=== PATIENT | female | born 1945 | race Caucasian/White ===

== ENCOUNTER 2019-09-11 10:43 | Emergency (ER) | payer MEDICARE ==
[~2019-09-11] VITALS: Ht 157.5 cm; Wt 77.1 kg
[~2019-09-11 10:43] MED LIST: ACET325 PO; ALBIPROI; ASPI325 PO; ASPI81EC PO; ATEN25 PO; ATOR10; Aspir 8181 MG PO; CINNAMON PLUS1 EACH; DIAZ5 PO; DIPATR; Duoneb 2.5-0.5 M3 ML IH; FISH OIL 1,001000 MG PO; FISH1000 PO; HYDACE5 PO; LISHYD2012 PO; LORA1 PO; LOSA50 PO; LOVA20; METO25ER PO; METO50ER PO; MONT10T; Meribin5 MG PO; NEBI5; Neurontin 100100 MG PO; OXYC5 PO; PRAV20 PO; PRAVASTATIN SOD10 MG PO; TRIHYD253A; Ventolin/Prove6.7 GM INH
[2019-09-11] MEDS ORDERED: BENADRYL25 MG PO (11:23)
== END 2019-09-11 11:52 | disposition home or self-care (01) ==
LOC: ER 10:43
DX: R21 Rash and other nonspecific skin eruption (principal); Z88.2 Allergy status to sulfonamides; Z88.5 Allergy status to narcotic agent; Z91.018 Allergy to other foods; Z88.8 Allergy status to other drugs, medicaments and biological substances; Z79.899 Other long term (current) drug therapy; Z79.82 Long term (current) use of aspirin; J44.9 Chronic obstructive pulmonary disease, unspecified; I10 Essential (primary) hypertension; Z86.73 Personal history of transient ischemic attack (TIA), and cerebral infarction without residual deficits; F17.210 Nicotine dependence, cigarettes, uncomplicated
CPT/HCPCS: 99282; Q0163

== ENCOUNTER 2020-04-16 10:13 | Day surgery (SDC) | payer MEDICARE ==
[~2020-04-16 10:13] MED LIST changes: +BENADRYL25 MG PO
--- NOTE | 2020-04-16 13:55 | NUR ---
PT TO IMAAGING FOR CTA AORTA, BACK NOW, VSS STABLE, W PT NOW, DR ROBERTSON IN EARLIER TO EXPLAIN PLAN OF CARE TO PT/
--- NOTE | 2020-04-16 14:28 | NUR ---
PT DRESSED, IV'S X 2 DC'D INTACT, PT AMB TO BTR OK, GAVE PT WC RIDE DOWN TO CAR, DRIVING PT HOME, DC'D WITH PAPER INSTRUCTIONS GIVEN
== END 2020-04-16 23:44 | disposition home or self-care (01) ==
LOC: MHTC 10:13
DX: I63.9 Cerebral infarction, unspecified (principal); I25.2 Old myocardial infarction; I70.0 Atherosclerosis of aorta; I11.9 Hypertensive heart disease without heart failure; Z79.82 Long term (current) use of aspirin; Z79.899 Other long term (current) drug therapy; F17.210 Nicotine dependence, cigarettes, uncomplicated; Z88.5 Allergy status to narcotic agent; Z88.8 Allergy status to other drugs, medicaments and biological substances; Z91.018 Allergy to other foods
CPT/HCPCS: 71275; 74175; 93312; 93325; J2704; J7030; Q9967

== ENCOUNTER → 2022-10-22 | Outpatient (CLI) | payer MEDICARE ==
[~2022-10-22] MED LIST changes: +HYDR1TAB94 PO; +PLAVIX75 MG PO
[2022-10-22 09:56] LABS: BASOPHILS ABSOLUTE AUTO 0.03 K/mm3 (0.00-0.23); BASOPHILS PERCENT AUTO 1 % (0-2); EOSINOPHILS ABSOLUTE AUTO 0.11 K/mm3 (0.00-0.68); EOSINOPHILS PERCENT AUTO 2 % (0-6); Hematocrit 44.7 % (33.0-51.0); Hemoglobin 15.4 g/dL (11.5-16.0); IMMATURE GRAN ABSOLUTE AUTO 0.01 K/mm3 (0.00-0.10); IMMATURE GRAN PERCENT AUTO 0 % (0-1); LYMPHOCYTES ABSOLUTE AUTO 1.88 K/mm3 (0.84-5.20); LYMPHOCYTES PERCENT AUTO 33 % (21-46); MONOCYTES ABSOLUTE AUTO 0.46 K/mm3 (0.16-1.47); MONOCYTES PERCENT AUTO 8 % (4-13); Mean Corpuscular HGB 31.4 pg (26.0-34.0); Mean Corpuscular HGB Conc 34.5 g/dL (31.5-36.5); Mean Corpuscular Volume 91 fL (80-100); Mean Platelet Volume 9.9 fL (9.1-12.4); NEUTROPHILS PERCENT AUTO 57 % (41-73); Platelet Count 172 K/mm3 (150-400); RDW Coefficient Variation 13.2 % (11.7-14.2); White Blood Cell Count 5.79 K/mm3 (4.00-11.30)
[2022-10-22 10:02] LABS: Bun/Creatinine Ratio 14.6 (12.0-20.0); Calcium, Blood 10.4 mg/dL (8.5-10.1); Creatinine, Blood 0.89 mg/dL (0.40-1.00); Potassium, Blood 3.8 mmol/L (3.5-5.5)
== END | disposition home or self-care (01) ==
LOC: LAB 09:52 → LAB SHORT 09:52
PROVIDERS: Physician Assistant Surgical
DX: R06.02 Shortness of breath (principal)
CPT/HCPCS: 80048; 83880; 85025

== ENCOUNTER → 2022-10-26 | Outpatient (CLI) | payer MEDICARE ==
[2022-10-26 16:07] LABS: BASOPHILS ABSOLUTE AUTO 0.04 K/mm3 (0.00-0.23); BASOPHILS PERCENT AUTO 1 % (0-2); EOSINOPHILS ABSOLUTE AUTO 0.11 K/mm3 (0.00-0.68); EOSINOPHILS PERCENT AUTO 2 % (0-6); Hematocrit 45.3 % (33.0-51.0); Hemoglobin 15.6 g/dL (11.5-16.0); IMMATURE GRAN ABSOLUTE AUTO 0.01 K/mm3 (0.00-0.10); IMMATURE GRAN PERCENT AUTO 0 % (0-1); LYMPHOCYTES ABSOLUTE AUTO 2.11 K/mm3 (0.84-5.20); LYMPHOCYTES PERCENT AUTO 35 % (21-46); MONOCYTES ABSOLUTE AUTO 0.48 K/mm3 (0.16-1.47); MONOCYTES PERCENT AUTO 8 % (4-13); Mean Corpuscular HGB 31.2 pg (26.0-34.0); Mean Corpuscular HGB Conc 34.4 g/dL (31.5-36.5); Mean Corpuscular Volume 91 fL (80-100); Mean Platelet Volume 10.8 fL (9.1-12.4); NEUTROPHILS ABSOLUTE AUTO 3.31 K/mm3 (1.96-9.15); NEUTROPHILS PERCENT AUTO 55 % (41-73); Platelet Count 173 K/mm3 (150-400); RDW Coefficient Variation 13.1 % (11.7-14.2); White Blood Cell Count 6.06 K/mm3 (4.00-11.30)
[2022-10-26 16:16] LABS: Albumin, Blood 4.2 g/dL (3.4-5.0); Albumin/Globulin Ratio 1.3 (0.8-1.8); Bilirubin, Total 0.6 mg/dL (0.1-1.0); Bun/Creatinine Ratio 12.5 (12.0-20.0); Calcium, Blood 10.4 mg/dL (8.5-10.1); Creatinine, Blood 1.2 mg/dL (0.40-1.00); Globulin, Blood 3.3 g/dL (2.2-4.0); Potassium, Blood 3.5 mmol/L (3.5-5.5); Total Protein, Blood 7.5 g/dL (6.4-8.2)
== END ==
LOC: LAB 16:03 → LAB SHORT 16:03
PROVIDERS: Physician Assistant Medical
DX: R42 Dizziness and giddiness (principal)
CPT/HCPCS: 80053; 85025